=== PATIENT | female | born 1980 | race Two or more races ===

== ENCOUNTER 2021-01-12 10:32 | Emergency (ER) | payer MEDICAID ==
[~2021-01-12] VITALS: Ht 165.1 cm; Wt 70.0 kg
[2021-01-12] MEDS ORDERED: IBUPROFEN 400MG TABLET PO ONE (11:45)
[2021-01-12] MEDS ORDERED: ACETAMINOPHEN 325MG TABLET PO ONE (11:45)
[2021-01-12 12:02] LABS: CLARITY URINE CLEAR (CLEAR); COLOR URINE YELLOW (YELLOW); KETONES URINE NEGATIVE (NEGATIVE); LEUKOCYTE ESTERASE URINE NEGATIVE (NEGATIVE); NITRITE URINE NEGATIVE (NEGATIVE); OCCULT BLOOD URINE NEGATIVE (NEGATIVE); PROTEIN URINE NEGATIVE (NEGATIVE); SPECIFIC GRAVITY URINE 1.023 (1.005-1.030); UROBILINOGEN URINE 0.2 E.U./dL (0.2-1.0)
[2021-01-12] MEDS ORDERED: NAPR-1176 MT (12:40)
[2021-01-12] MEDS ORDERED: TOPUD MT (12:40)
[2021-01-12 12:49] VITALS: BP 132/70
== END 2021-01-12 12:49 | disposition home or self-care (01) ==
LOC: ER 10:32
DX: M79.10 Myalgia, unspecified site (principal); R05 Cough; E78.00 Pure hypercholesterolemia, unspecified; J45.909 Unspecified asthma, uncomplicated; Z20.822 Contact with and (suspected) exposure to COVID-19
CPT/HCPCS: 71045; 81003; 81025; 99284; C9803; U0003; U0005